=== PATIENT | male | born 1970 | race Caucasian/White ===

== ENCOUNTER 2017-06-23 18:40 | Emergency (ER) | payer SELFPAY ==
[~2017-06-23] VITALS: Ht 167.6 cm; Wt 70.0 kg
[2017-06-23] MEDS ORDERED: TRAM50TA3 PO (18:48)
[2017-06-23] MEDS: ONDANSETRON 4MG ODT PO NR (23:05)
[2017-06-23] MEDS: SUMATRIPTAN SUCCINATE 6MG/0.5ML VIAL SUBCUT NR (23:05)
[2017-06-23 23:50] LABS: EOSINOPHILS % 0.5 % (0.0-5.0); HEMATOCRIT. 40.1 % (42.0-52.0); HEMOGLOBIN. 13.9 g/dL (14.0-18.0); LYMPHOCYTES % 20.2 % (20.0-50.0); MEAN CORPUSCULAR HEMOGLOBIN 30.7 pg (28.0-32.0); MEAN CORPUSCULAR VOLUME 88.2 fL (80.0-94.0); MEAN PLATELET VOLUME 8.9 fl (7.4-10.4); MONOCYTES % 7.7 % (2.0-8.0); NEUTROPHILS % 70.6 % (40.0-76.0); PLATELET 163 x1000/uL (130-400); RED BLOOD CELL COUNT 4.54 mill/uL (4.7-6.1)
[2017-06-23 23:55] LABS: CHLORIDE 104 mEq/L (98-107)
[2017-06-24 01:21] VITALS: BP 143/85
== END 2017-06-24 01:23 | disposition home or self-care (01) ==
LOC: ER 18:46
DX: G43.909 Migraine, unspecified, not intractable, without status migrainosus (principal); I10 Essential (primary) hypertension; F17.200 Nicotine dependence, unspecified, uncomplicated; Z88.0 Allergy status to penicillin
CPT/HCPCS: 36415; 70450; 80048; 85025; 96372; 99285; J3030; Q0162; Z7610

== ENCOUNTER 2019-02-18 15:01 | Emergency (ER) | payer MEDICAID ==
[~2019-02-18] VITALS: Ht 177.8 cm; Wt 68.0 kg
[~2019-02-18 15:01] MED LIST: TRAM50TA3 PO
[2019-02-18] MEDS ORDERED: HYDROCODONE/ACETAMINOPHEN 5/325MG TABLET PO STA (15:34)
[2019-02-18] MEDS ORDERED: DOXYCYCLINE HYCLATE 100MG CAPSULE PO ONE (15:45)
[2019-02-18 16:01] LABS: BASOPHILS % 0.9 % (0.0-2.0); EOSINOPHILS % 1.5 % (0.0-5.0); HEMOGLOBIN. 10.2 g/dL (14.0-18.0); LYMPHOCYTES % 14.8 % (20.0-50.0); MEAN CORPUSCULAR HEMOGLOBIN 32.2 pg (28.0-32.0); MEAN CORPUSCULAR VOLUME 91.5 fL (80.0-94.0); MEAN PLATELET VOLUME 8.5 fl (7.4-10.4); MONOCYTES % 9.2 % (2.0-8.0); NEUTROPHILS % 73.6 % (40.0-76.0); PLATELET 133 x1000/uL (130-400); RED BLOOD CELL COUNT 3.16 mill/uL (4.7-6.1); RED CELL DISTRIBUTION WIDTH 12.7 % (11.6-14.6)
[2019-02-18 16:05] LABS: CHLORIDE 112 mEq/L (98-107); PROTHROMBIN TIME 10.6 sec (9.6-11.0)
[2019-02-18 17:00] VITALS: BP 133/98
== END 2019-02-18 17:15 | disposition home or self-care (01) ==
LOC: ER 15:44
DX: I83.91 Asymptomatic varicose veins of right lower extremity (principal); L97.319 Non-pressure chronic ulcer of right ankle with unspecified severity; F17.200 Nicotine dependence, unspecified, uncomplicated; E11.9 Type 2 diabetes mellitus without complications; I10 Essential (primary) hypertension; Z88.0 Allergy status to penicillin
CPT/HCPCS: 36415; 80053; 85025; 85610; 86850; 86900; 86901; 99283; Z7610

== ENCOUNTER 2024-05-18 00:56 | Emergency (ER) | payer MEDICAID ==
[~2024-05-18] VITALS: Ht 177.8 cm; Wt 87.0 kg
[2024-05-18 01:13] VITALS: BP 182/108; PULSE 81; RESP 18; TEMP 97.6; O2SAT 100
[2024-05-18] MEDS ORDERED: ACETAMINOPHEN 1000MG/100ML 100 ML IV ONE (01:15)
[2024-05-18] MEDS ORDERED: METOCLOPRAMIDE HCL 10MG/2ML VIAL IV ONE (01:15)
[2024-05-18] MEDS ORDERED: HYDRALAZINE 20MG/ML VIAL IV ONE (01:15)
[2024-05-18 03:25] LABS: EOSINOPHILS % 2.4 % (0.0-5.0); HEMATOCRIT. 41.7 % (42.0-52.0); HEMOGLOBIN. 14.4 g/dL (14.0-18.0); LYMPHOCYTES % 20.6 % (20.0-50.0); MEAN CORPUSCULAR HEMOGLOBIN 31.3 pg (28.0-32.0); MEAN CORPUSCULAR HGB CONC 34.6 g/dL (31.0-37.0); MEAN CORPUSCULAR VOLUME 90.4 fL (80.0-94.0); MEAN PLATELET VOLUME 8.8 fl (7.4-10.4); MONOCYTES % 7.5 % (2.0-8.0); NEUTROPHILS % 68.5 % (40.0-76.0); PLATELET 188 x1000/uL (130-400); RED BLOOD CELL COUNT 4.62 mill/uL (4.7-6.1); RED CELL DISTRIBUTION WIDTH 13.1 % (11.6-14.6); WHITE BLOOD COUNT 6.3 x1000/uL (4.5-11.0)
[2024-05-18 03:32] LABS: CHLORIDE 105 mEq/L (98-107); POTASSIUM 3.7 mEq/L (3.5-5.1); SODIUM 136 mEq/L (136-145)
[2024-05-18 03:33] LABS: CARBON DIOXIDE 23 mEq/L (21-32)
[2024-05-18 03:34] LABS: CALCIUM 9.5 mg/dL (8.7-10.4)
[2024-05-18 03:37] LABS: PARTIAL THROMBOPLASTIN TIME 28.3 sec (23.4-31.0); PROTHROMBIN TIME 10.7 sec (9.6-11.0)
[2024-05-18 03:38] LABS: CREATININE 0.7 mg/dL (0.6-1.3); GLUCOSE 113 mg/dL (70-105); UREA NITROGEN BLOOD 9 mg/dL (9-23)
[2024-05-18 04:16] LABS: ETHANOL BLOOD < 10 mg/dL (<10); TROPONIN I HIGH SENSITIVITY < 4 ng/L (3.0-53)
== END 2024-05-18 04:36 | disposition left against medical advice (07) ==
LOC: ER 00:56
DX: I10 Essential (primary) hypertension (principal); E11.9 Type 2 diabetes mellitus without complications; Z88.0 Allergy status to penicillin; Z91.148 Patient's other noncompliance with medication regimen for other reason; Z86.59 Personal history of other mental and behavioral disorders; Z98.890 Other specified postprocedural states
CPT/HCPCS: 36415; 71045; 80048; 80320; 83880; 84484; 85025; 93005; 99285; G0480; J0131